=== PATIENT | female | born 1940 | race Caucasian/White ===

== ENCOUNTER → 2017-04-22 | Outpatient (CLI) | payer MEDICARE | LOC: PREOP 06:50 | PROVIDERS: ATTEND Surgery | DX: Z01.818 Encounter for other preprocedural examination (principal); R10.32 Left lower quadrant pain; R19.5 Other fecal abnormalities ==

== ENCOUNTER 2017-04-27 12:09 | Day surgery (SDC) | payer MEDICARE ==
[~2017-04-27] VITALS: Ht 170.2 cm; Wt 81.6 kg
[2017-04-27] MEDS ORDERED: NS IV 1000 ML 1,000 ML IV STA (12:22)
[2017-04-27] MEDS ORDERED: NS (IVPB) 50 ML ONE (12:25)
[2017-04-27] MEDS ORDERED: CLINDAMYCIN 600 MG/4ML (CLEOCIN) VIAL ONE (12:25)
[2017-04-27] MEDS ORDERED: FLUMAZENIL (ROMAZICON) 0.1 MG/ML 5 ML VIAL INJ PRN (12:30)
[2017-04-27] MEDS ORDERED: NALOXONE 0.4 MG/ML 1 ML (NARCAN) VIAL IVP PRN (12:30)
[2017-04-27] MEDS ORDERED: HURRICAINE EXT TUBE (BENZOCAINE) XX PRN (12:30)
[2017-04-27 12:56] VITALS: BP 119/87
[2017-04-27] MEDS ORDERED: CLINDAMYCIN 600 MG/NS 50 ML IVPB IV ONE ×2 (13:00)
[2017-04-27] MEDS ORDERED: METO1TAB38 PO (13:09)
[2017-04-27] MEDS ORDERED: ASPI-999 PO (13:09)
[2017-04-27] MEDS ORDERED: MIDAZOLAM 2 MG/2 ML (VERSED) VIAL ONE (14:35)
[2017-04-27] MEDS ORDERED: proPOfol 200 MG/20 ML (DIPRIVAN) VIAL IV ONE (14:35)
--- NOTE | 2017-04-27 14:49 | Progress Note-Pre Operative ---
Pre-Operative Progress Note H&P Reviewed The H&P was reviewed, patient examined and no changes noted. Date Seen by Provider: Apr 27, 2017 Time Seen by Provider: 14:48 Date H&P Reviewed: Apr 27, 2017 Time H&P Reviewed: 14:48 Pre-Operative Diagnosis: right lower quadrant abdominal pain, dark stools ALEXANDR ERAZO DO Apr 27, 2017 2:49 pm
[2017-04-27] MEDS ORDERED: ESMOLOL 100 MG/10 ML (BREVIBLOC) VIAL ONE (15:09)
[2017-04-27] MEDS ORDERED: NF-ESOM40C PO (15:23)
--- NOTE | 2017-04-27 15:26 | Progress Note-Post Operative ---
Post-Operative Progess Note Surgeon (s)/Nursing Home Physician (s) Surgeon ALEXANDR ERAZO DO Nursing Home Physician: na Pre-Operative Diagnosis right lower quadrant abdominal pain, dark stools Post-Operative Diagnosis pyloric channel/ antrum healing erosion, small hiatal hernia, normal colon Procedure & Operative Findings Date of Procedure 04/27/17 Procedure Performed/Findings egd c biopsies, colonoscopy Anesthesia Type per traffic control signaler Estimated Blood Loss Estimated blood loss (mL): none Specimens/Packing Specimens Removed antrum, ge junction ALEXANDR ERAZO DO Apr 27, 2017 3:26 pm
--- NOTE | 2017-04-27 15:27 | Discharge Inst-Simple/Standard ---
Discharge Inst-Standard Discharge Medications New, Converted or Re-Newed RX: RX on Chart Patient Instructions/Follow Up Plan of Care/Instructions/FU: Follow up with Dr. Pacheco before may 16 Continue to take Nexium 40 mg once a day. Repeat colonoscopy in 10 years or sooner if family hx of colon cancer or changes in current conditions. Activity as Tolerated: Yes Discharge Diet: No Restrictions NO CEJA APRN Apr 27, 2017 15:27
[2017-04-27 15:35] VITALS: BP 117/70
[2017-04-27 15:55] VITALS: BP 109/94
[2017-04-27 16:38] VITALS: BP 109/94
--- NOTE | 2017-04-28 01:47 | OPERATIVE REPORT ---
DATE OF SERVICE: 04/27/2017 PREOPERATIVE DIAGNOSIS: Right lower quadrant abdominal pain, dark stools. POSTOPERATIVE DIAGNOSES: Pyloric channel antrum healing erosion, small hiatal hernia, normal colon. PROCEDURE: EGD with biopsies and colonoscopy. SURGEON: Alexandr Pacheco DO. ANESTHESIA: Per NOZZLE AND SLEEVE WORKER. ESTIMATED BLOOD LOSS: None. COMPLICATIONS: None. INDICATIONS: The patient is a 76-year-old female who presented with right lower quadrant abdominal pain as having dark stools. She was placed on Nexium and started having improvement. She was recommended to have EGD and colonoscopy. She understands the risks and benefits and wished to proceed with procedure. Consent was signed and on the chart. DESCRIPTION OF PROCEDURE: The patient was taken to the endoscopy suite, placed in left lateral recumbent position. Timeout was performed. Scope was inserted into the mouth, down the esophagus, stomach and into the duodenum without difficulty. There are no polyps, masses or ulcerations within the duodenum. The scope was slowly retracted back into the stomach where in the pylorus and into the antrum there were some erythematous changes in appearance of healing erosion. Biopsy of the antrum at this area was obtained. The scope was then slowly retracted back and retroflexed noting a small hiatal hernia. There is a small polyp present. Scope was returned to its normal position, slowly withdrawn back into the distal esophagus, there were some slight erythematous changes at the GE junction. Biopsy was obtained. Scope was slowly retracted back noting no other pathology. Digital rectal exam was performed and there were no palpable polyps, masses or ulcerations. Scope was inserted in the rectum and advanced all the way to the cecum with minimal difficulty. Prep was adequate. Scope was then slowly retracted back. There were no polyps, masses or ulcerations within the cecum, ascending, transverse, descending and sigmoid colon. Once in the rectum, scope was also retroflexed noting no other pathology. Scope was returned to its normal position, slowly withdrawn until completely removed. The patient tolerated procedure well without any complications. She was taken to recovery room in stable condition. RECOMMENDATIONS: The patient will continue on Nexium 40 mg daily. She will follow up in the office to discuss pathology results. The patient would recommend repeat colonoscopy if she has any problems at that time; otherwise in 5 years if no family history of colon cancer. We would recommend a repeat EGD in 1 to 3 years depending upon biopsy results. Job ID: [id number] DocumentID: [id number] Dictated Date: 04/27/2017 15:30:19 Antenna Rigger Date: 04/28/2017 01:47:01 Dictated By: ALEXANDR PACHECO DO
--- OUTSIDE RECORDS SUMMARY | 2017-04-29 16:19 | XMS REPORT | Continuity of Care Document ---
Author Author [facility] Organization [facility] Address Unknown Phone Unavailable Allergies Active Description Code Type Severity Reaction Onset Reported/Identified Relationship to Patient Clinical Status Yes Cephalosporins [id number] Drug Allergy Unknown N/A 04/27/2017 Medications Problems Procedures Results Encounters ACCT No. Visit Date/Time Discharge Status Pt. Type Provider Facility Loc./Unit Complaint [id number] 04/27/2017 12:09:00 2016 16:30:00 DIS Outpatient ALEXANDR ERAZO DO [facility] ENDO D[facility] [place] [id number] 08/18/2013 07:22:00 2012 23:59:59 CLS Outpatient [id number] 04/22/2017 06:50:00 ACT Outpatient ALEXANDR ERAZO DO [facility] PREOP [place] [place]
== END 2017-04-27 16:30 | disposition home or self-care (01) ==
LOC: ENDO 12:09
PROVIDERS: ATTEND Surgery
DX: R19.5 Other fecal abnormalities (principal); K25.9 Gastric ulcer, unspecified as acute or chronic, without hemorrhage or perforation; K44.9 Diaphragmatic hernia without obstruction or gangrene; K31.7 Polyp of stomach and duodenum; I10 Essential (primary) hypertension; E78.5 Hyperlipidemia, unspecified; I27.2 Other secondary pulmonary hypertension

== ENCOUNTER 2017-10-09 13:25 | Emergency (ER) | payer MEDICARE ==
[~2017-10-09] VITALS: Ht 162.6 cm; Wt 72.6 kg
[~2017-10-09 13:25] MED LIST: ASPI-999 PO; METO1TAB38 PO; NF-ESOM40C PO
--- OUTSIDE RECORDS SUMMARY | 2017-10-09 13:29 | XMS REPORT | Continuity of Care Document ---
Author Author [facility] Organization [facility] Address Unknown Phone Unavailable Allergies Active Description Code Type Severity Reaction Onset Reported/Identified Relationship to Patient Clinical Status Yes Cephalosporins [id number] Drug Allergy Unknown N/A 04/27/2017 Medications Problems Date Dx Coded Attending Type Code Diagnosis Diagnosed By 04/27/2017 ALEXANDR ERAZO DO Ot E78.5 HYPERLIPIDEMIA, UNSPECIFIED 04/27/2017 ALEXANDR ERAZO DO Ot I10 ESSENTIAL (PRIMARY) HYPERTENSION 04/27/2017 ALEXANDR ERAZO DO Ot I27.2 OTHER SECONDARY PULMONARY HYPERTENSION 04/27/2017 ALEXANDR ERAZO DO Ot K25.9 GASTRIC ULCER, UNSP ACUTE OR CHRONIC, 04/27/2017 ALEXANDR ERAZO DO Ot K31.7 POLYP OF STOMACH AND DUODENUM 04/27/2017 ALEXANDR ERAZO DO Ot K44.9 DIAPHRAGMATIC HERNIA WITHOUT OBSTRUCTION 04/27/2017 ALEXANDR ERAZO DO Ot R19.5 OTHER FECAL ABNORMALITIES Procedures Results Encounters ACCT No. Visit Date/Time Discharge Status Pt. Type Provider Facility Loc./Unit Complaint [id number] 04/27/2017 12:09:00 2016 16:30:00 DIS Outpatient ALEXANDR ERAZO DO [facility] ENDO [place] [id number] 04/22/2017 06:50:00 2016 23:59:59 CLS Outpatient ALEXANDR ERAZO DO [facility] PREOP [place] [id number] 08/18/2013 07:22:00 2012 23:59:59 CLS Outpatient
[2017-10-09 13:30] VITALS: BP 157/80
[2017-10-09 13:44] LABS: BASOPHILS % (AUTO) 0 % (0-10); EOSINOPHILS # (AUTO) 0.1 10^3/uL (0.0-0.3); EOSINOPHILS % (AUTO) 1 % (0-10); LYMPHOCYTES % (AUTO) 27 % (12-44); MEAN CORPUSCULAR HEMOGLOBIN 29 PG (25-34); MEAN CORPUSCULAR HGB CONC 34 G/DL (32-36); MEAN CORPUSCULAR VOLUME 86 FL (80-99); MEAN PLATELET VOLUME 10.6 FL (7.4-10.4); MONOCYTES # (AUTO) 0.7 X 10^3 (0.0-1.0); MONOCYTES % (AUTO) 10 % (0-12); NEUTROPHILS # (AUTO) 4.7 X 10^3 (1.8-7.8); NEUTROPHILS % (AUTO) 63 % (42-75); PLATELET COUNT 246 10^3/uL (130-400); RED BLOOD COUNT 5.03 10^6/uL (4.35-5.85); WHITE BLOOD COUNT 7.5 10^3/uL (4.3-11.0)
--- NOTE | 2017-10-09 13:46 | Diagnostic Imaging Report ---
Portable erect AP chest at 1:35 p.m. INDICATION: Chest pain. FINDINGS: The heart is enlarged and the heart does seem more prominent than noted on the prior exam of 03/10/2007. The lungs are clear, however, there is no sign of failure, pneumonia or pleural effusion. Mediastinum is not widened. The osseous structures are intact. In the interval since the prior study, soft tissue calcifications have developed along the inferior aspect of the right glenohumeral joint. 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 If further imaging is desired, then CT would be recommended. IMPRESSION: 1. There is cardiomegaly but there is no evidence for acute cardiopulmonary abnormality. 2. 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 Recommendations as above. Dictated by: Dictated on workstation # [id number]
--- NOTE | 2017-10-09 13:49 | Diagnostic Imaging Report ---
INDICATION: CVA. FINDINGS: There is no mass, shift of midline or hemorrhage to suggest an acute intracranial abnormality. The left middle cerebral artery, however, does seem hyperdense compared to the right. This finding is somewhat similar to the previous CT head exam of 10/14/2012. Even so, the possibility that there is an acute infarct in the distribution of the left middle cerebral artery should be the primary concern. The ventricles are not abnormally dilated and stable in size when compared to the prior exam of 10/14/2012. The cortical atrophy seen previously is again evident and no different. The bone windows show no sign of a fracture or destructive lesion. The orbits are similar in appearance to the prior exam. There is a small radiopaque density along the inferior margin of the left globe. The sinuses are generally clear where visualized. IMPRESSION: 1. There is no mass or hemorrhage identified. However, the hyperdense appearance of left middle cerebral artery does suggest an acute infarct in the distribution of the left middle cerebral artery. If further imaging is desired, then MRI would be recommended. 2. These results were discussed with Dr. Cary at the time of this dictation. CRITICAL FINDING Dictated by: Dictated on workstation # [id number]
[2017-10-09 13:57] LABS: PROTHROMBIN TIME PATIENT 13.5 SEC (12.2-14.7)
[2017-10-09] MEDS ORDERED: ALTEPLASE 100 MG/VIAL (ACTIVASE) IV ONE (13:57)
[2017-10-09 14:03] LABS: ALANINE AMINOTRANSFERASE 29 U/L (0-55); ANION GAP 12 MMOL/L (5-14); ASPARTATE AMINO TRANSFERASE 28 U/L (5-34); BLOOD UREA NITROGEN 20 MG/DL (7-18); BUN/CREATININE RATIO 24; CALCIUM 9.1 MG/DL (8.5-10.1); CARBON DIOXIDE 21 MMOL/L (21-32); CHLORIDE 107 MMOL/L (98-107); CREATININE SERUM 0.85 MG/DL (0.60-1.30); GFR ESTIMATED > 60; GLUCOSE 96 MG/DL (70-105); SODIUM 140 MMOL/L (135-145); TOTAL PROTEIN 7.2 GM/DL (6.4-8.2)
[2017-10-09 14:09] LABS: TROPONIN I < 0.30 NG/ML (<0.30)
[2017-10-09 14:15] LABS: BILIRUBIN,URINE NEGATIVE (NEGATIVE); KETONES,URINE 1+ (NEGATIVE); LEUKOCYTE ESTERASE ,URINE 1+ (NEGATIVE); NITRITE,URINE NEGATIVE (NEGATIVE); PH,URINE 6 (5-9); PROTEIN,URINE 1+ (NEGATIVE); UROBILINOGEN,URINE NORMAL (NORMAL)
--- NOTE | 2017-10-09 14:15 | ED Neurological Problem ---
General Chief Complaint: Neuro-Stroke Like Symptoms Stated Complaint: STROKE Source: EMS Exam Limitations: clinical condition History of Present Illness Time seen by provider: 13:24 Initial Comments Here emergently by EMS with report of acute right sided flaccidity and left- sided gaze onset at about 1 p.m. today. Patient maintaining her own airway. 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 Has history of atrial fibrillation that is apparently paroxysmal. Unsure of anticoagulant use. Otherwise unable to obtain history due to clinical condition. Timing/Duration: 1/2 hour Severity: severe Associated Symptoms: other (unable to determine due to clinical condition) Allergies and Home Medications Allergies Coded Allergies: Cephalosporins (Unverified Allergy, Unknown, 04/27/17) Home Medications Esomeprazole Magnesium 40 Mg Cap, 40 MG PO DAILY, #30 Ref 6 Prescribed by: NO FARR on 04/27/17 1523 Metoprolol Succinate/Hctz 1 Each Tab.er.24h, EACH PO, (Reported) Constitutional: see HPI Other Unable to complete due to clinical condition Past Gaqpdvt-Rnsurc-Liwdtt Hx Patient Social History Alcohol Use: Occasionally Uses Alcohol Beverage of Choice: Wine Smoking Status: Former Smoker Type Used: Cigarettes Former Smoker, Quit: Apr 08, 1963 Recent Hopitalizations: No Immunizations Up To Date Tetanus Booster (TDap): Unknown Seasonal Allergies Seasonal Allergies: No Surgeries History of Surgeries: Yes Surgeries: Orthopedic, Tonsillectomy Respiratory Currently Using CPAP: No Cardiovascular History of Cardiac Disorders: Yes Cardiac Disorders: Atrial Fibrillation, Hypertension, Irregular Heartbeat Neurological History of Neurological Disord: No Reproductive System Hx Reproductive Disorders: No Sexually Transmitted Disease: No HIV/AIDS: No Female Reproductive Disorders: Denies Genitourinary History of Genitourinary Disor: No Gastrointestinal History of Gastrointestinal Di: Yes Gastrointestinal Disorders: Gastroesophageal Reflux HEENT Loss of Vision: Denies Hearing Impairment: Denies Reviewed Nursing Assessment Reviewed/Agree w Nursing PMH: Yes Family Medical History Significant Family History: Stroke Physical Exam Vital Signs Vital Sign - Last 12Hours 10/09/17 13:25 Temp 97.5 Pulse 64 Resp 16 B/P (MAP) 157/80 (105) O2 Delivery Room Air Capillary Refill : General Appearance: WD/WN, moderate distress HEENT: pharynx normal, other (pupils are equal bilateral with left sided gaze and does not go right to pass midline.) Neck: supple, No lymphadenopathy (R), No lymphadenopathy (L) Respiratory: lungs clear, normal breath sounds Cardiovascular: regular rate, rhythm, no murmur Peripheral Pulses: 2+ Dorsalis Pedis (R), 2+ Left Dors-Pedis (L), 2+ Radial Pulses (R), 2+ Radial Pulses (L) Gastrointestinal: non tender, soft Back: no CVA tenderness, no vertebral tenderness Extremities: pedal edema (1-2+ bilateral lower extremities), other (able to move left arm and left leg and has minimal proximal movement of the right arm and right leg although is unable to left.) Neurologic/Psychiatric: facial droop (right), motor weakness (right-sided), disoriented x 3, other (eyes open and does not talk. Does lift arm on command and put it down on command but otherwise follows no commands.) Crainal Nerves: abnormal eye position, abnormal speech, facial droop Coordination/Gait: other (unable to perform due to clinical condition) Motor/Sensory: weak motor strength RUE, weak motor strength RLE, weak motor strength LLE Skin: normal color, warm/dry Progress/Results/Core Measures Results/Orders Lab Results Laboratory Tests Test 10/09/17 13:36 10/09/17 13:46 10/09/17 14:09 Range/Units White Blood Count 7.5 4.3-11.0 10^3/uL Red Blood Count 5.03 4.35-5.85 10^6/uL Hemoglobin 14.5 11.5-16.0 G/DL Hematocrit 43 35-52 % Mean Corpuscular Volume 86 80-99 FL Mean Corpuscular Hemoglobin 29 25-34 PG Mean Corpuscular Hemoglobin Concent 34 32-36 G/DL Red Cell Distribution Width 14.0 10.0-14.5 % Platelet Count 246 130-400 10^3/uL Mean Platelet Volume 10.6 H 7.4-10.4 FL Neutrophils (%) (Auto) 63 42-75 % Lymphocytes (%) (Auto) 27 12-44 % Monocytes (%) (Auto) 10 0-12 % Eosinophils (%) (Auto) 1 0-10 % Basophils (%) (Auto) 0 0-10 % Neutrophils # (Auto) 4.7 1.8-7.8 X 10^3 Lymphocytes # (Auto) 2.0 1.0-4.0 X 10^3 Monocytes # (Auto) 0.7 0.0-1.0 X 10^3 Eosinophils # (Auto) 0.1 0.0-0.3 10^3/uL Basophils # (Auto) 0.0 0.0-0.1 10^3/uL Prothrombin Time 13.5 12.2-14.7 SEC INR Comment 1.0 0.8-1.4 Activated Partial Thromboplast Time 29 24-35 SEC D-Dimer 0.87 H 0.00-0.49 UG/ML Sodium Level 140 135-145 MMOL/L Potassium Level 4.0 3.6-5.0 MMOL/L Chloride Level 107 98-107 MMOL/L Carbon Dioxide Level 21 21-32 MMOL/L Anion Gap 12 5-14 MMOL/L Blood Urea Nitrogen 20 H 7-18 MG/DL Creatinine 0.85 0.60-1.30 MG/DL Estimat Glomerular Filtration Rate > 60 BUN/Creatinine Ratio 24 Glucose Level 96 70-105 MG/DL Calcium Level 9.1 8.5-10.1 MG/DL Total Bilirubin 1.0 0.1-1.0 MG/DL Aspartate Amino Transf (AST/SGOT) 28 5-34 U/L Alanine Aminotransferase (ALT/SGPT) 29 0-55 U/L Alkaline Phosphatase 92 40-136 U/L Troponin I < 0.30 <0.30 NG/ML Total Protein 7.2 6.4-8.2 GM/DL Albumin 4.0 3.2-4.5 GM/DL Glucometer 89 70-110 MG/DL Urine Color YELLOW Urine Clarity VERY CLOUDY H Urine pH 6 5-9 Urine Specific [place] 1.020 1.016-1.022 Urine Protein 1+ H NEGATIVE Urine Glucose (UA) NEGATIVE NEGATIVE Urine Ketones 1+ H NEGATIVE Urine Nitrite NEGATIVE NEGATIVE Urine Bilirubin NEGATIVE NEGATIVE Urine Urobilinogen NORMAL NORMAL MG/DL Urine Leukocyte Esterase 1+ H NEGATIVE Urine RBC (Auto) NEGATIVE NEGATIVE Urine RBC NONE /HPF Urine WBC 2-5 /HPF Urine Squamous Epithelial Cells 0-2 /HPF Urine Crystals NONE /LPF Urine Bacteria NEGATIVE /HPF Urine Casts NONE /LPF Urine Mucus LARGE H /LPF Urine Culture Indicated NO My Orders Orders - SUSANA SULLIVAN MD Cbc With Automated Diff (10/09/17 13:27) Protime With Inr (10/09/17 13:27) Partial Thromboplastin Time (10/09/17 13:27) Comprehensive Metabolic Panel (10/09/17 13:) Fibrin Degradation Products (10/09/17 13:27) Troponin I (10/09/17 13:27) Ua Culture If Indicated (10/09/17 13:27) Chest 1 View, Ap/Pa Only (10/09/17 13:27) Catheter(Urinary) Insert & Ass 03,15 (10/09/17 13:27) Ekg Tracing (10/09/17 13:27) Nothing By Mouth (10/09/17 Dinner) Accucheck Stat ONCE (10/09/17:) Saline Lock/Iv-Start (10/09/17:27) Saline Lock/Iv-Start (10/09/17 13:27) Vital Signs - Stroke Q15M (10/09/17 13:27) Ct Head Wo-R/O Stroke (10/09/17 13:27) O2 (10/09/17 13:27) Intake & Output 06,14,22 (10/09/17 13:27) Monitor-Rhythm Ecg Trace Only (10/09/17 13:27) Dysphagia Screening Tool (10/09/17 13:27) Post Thrombolytic Adminstratio (10/09/17 13:27) Alteplase (Activase) (Activase Injection (10/09/17 13:57) Vital Signs/I&O Vital Sign - Last 12Hours 10/09/17 13:25 Temp 97.5 Pulse 64 Resp 16 B/P (MAP) 157/80 (105) O2 Delivery Room Air Point of Care Testing Finger Stick Blood Glucose: 89 Progress Note : Progress Note Seen and evaluated on arrival by EMS and then directly to CT scanner. Stroke team initiated prior to patient arrival. Concerns for significant stroke. IV, labs, EKG, chest x-ray, Leo catheter and second IV ordered in anticipation of TPA. I did make contact with the stroke neurologist at [facility] at 1346. She agrees with TPA if possible. I have talked with the radiologist and he believes that there is density within the left MCA concerning for left MCA stroke. This makes sense given her current medical presentation. Dr. Hidalgo does recommend TPA in the setting. We're currently trying to determine if the patient is on blood thinners. We are initiating calls to local pharmacies as well as to the . 1400: states that she is not on blood thinners. Coags are negative. Patient has no other contraindication to TPA and has been gives verbal permission on the phone to Gregg Ocampo APRN after discussion of risk and benefits. 1405: TPA bolus initiated after all lines have been placed. Blood pressure 150s to 160s over 70s. Patient was noted to have slight proximal movement to the upper arm and upper leg. Due to the large vessel occlusion, patient will need to go to Center capable of clot retrieval if this is an indicated procedure. Dr. Hidalgo has accepted the patient in transfer to and transfer team has called back and given bed. We have initiated helicopter transport and it is in route for transport to . This is the closest Center capable of managing this type of procedure. was informed and is aware and agrees. 1420: Blood pressure 144/67 with heart rate of 59 and O2 sat 97 percent on room air. ECG Initial ECG Impression Date: Oct 09, 2017 Initial ECG Impression Time: 13:39 Initial ECG Rate: 64 Initial ECG Rhythm: Normal Sinus Comment Sinus rhythm with left bundle branch block. Left axis deviation. No previous available for comparison. Interpreted by me. Diagnostic Imaging Diagonstic Imaging: CT Plain Films/CT/US/NM/MRI: head Comments [facility] [place] [place] NAME: JEREMIAH OLIVER [facility] REC#: [id number] PT STATUS: REG ER : 1940 PHYSICIAN: SUSANA SULLIVAN MD ADMIT DATE: 10/09/17/ER Draft Date of Exam:10/09/17 CT HEAD WO-R/O STROKE INDICATION: CVA. FINDINGS: There is no mass, shift of midline or hemorrhage to suggest an acute intracranial abnormality. The left middle cerebral artery, however, does seem hyperdense compared to the right. This finding is similar to the previous CT head exam of 10/14/2012. The ventricles are not abnormally dilated and stable in size when compared to the prior exam of 10/14/2012. The cortical atrophy seen previously is again evident and no different. The bone windows show no sign of a fracture or destructive lesion. The orbits are similar in appearance to the prior exam. There is a small radiopaque density along the inferior margin of the left globe. The sinuses are generally clear where visualized. IMPRESSION: 1. There is no mass or hemorrhage identified. However, the hyperdense appearance of left middle cerebral artery does suggest an infarct in the distribution of the left middle cerebral artery. If further imaging is desired, MRI would be recommended. 2. These results were discussed with Dr. Sullivan. CRITICAL FINDING Dictated on workstation # [id number] Dict: 10/09/17 1336 Trans: 10/09/17 1349 KB [id number] Interpreted by: MAN JOSEPH MD Electronically signed by: Delisagonslauren Imaging: Xray Plain Films/CT/US/NM/MRI: chest Comments [facility] [place] [place] NAME: JEREMIAH OLIVER [facility] REC#: [id number] PT STATUS: REG ER : 1940 PHYSICIAN: SUSANA SULLIVAN MD ADMIT DATE: 10/09/17/ER Draft Date of Exam:10/09/17 CHEST 1 VIEW, AP/PA ONLY Portable erect AP chest at 1:35 p.m. INDICATION: Chest pain. FINDINGS: The heart is enlarged and the heart does seem more prominent than noted on the prior exam of 03/10/2007. The lungs are clear, however, there is no sign of failure, pneumonia or pleural effusion. Mediastinum is not widened. The osseous structures are intact. In the interval since the prior study, soft tissue calcifications have developed along the inferior aspect of the right glenohumeral joint. 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 If further imaging is desired, then CT would be recommended. IMPRESSION: 1. There is cardiomegaly but there is no evidence for acute cardiopulmonary abnormality. 2. 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 Recommendations as above. Dictated on workstation # [id number] Dict: 10/09/17 1340 Trans: 10/09/17 1346 KB [id number] Interpreted by: MAN JOSEPH MD Electronically signed by: Departure Impression Impression: Primary Impression: Cerebrovascular accident due to cerebral artery occlusion Disposition: 02 XFER SHT-TRM HOSP Condition: Critical Transfer Time Spoke to Accepting Phy: 13:46 Transfer Time: 14:25 Transfer Facility: [facility], Dr. Hidalgo accepting Method of Transfer: Air Departure-Patient Inst. Referrals: BLU HAYDEN MD (PCP) Primary Care Physician Copy Copies To 1: BLU HAYDEN MD, TIMOTHY D MD Oct 09, 2017 14:15
[2017-10-09 14:38] LABS: SQUAMOUS EPITHELIAL CELL,UR 0-2 /HPF
[2017-10-09 14:45] VITALS: BP 142/78
== END 2017-10-09 14:45 | disposition short-term general hospital (02) ==
LOC: EDUNIT# 13:25 → ER 13:26
DX: I63.50 Cerebral infarction due to unspecified occlusion or stenosis of unspecified cerebral artery (principal); K21.9 Gastro-esophageal reflux disease without esophagitis; I48.91 Unspecified atrial fibrillation; Z90.89 Acquired absence of other organs
CPT/HCPCS: 36415; 70450; 71010; 80053; 81000; 82962; 84484; 85025; 85379; 85610; 85730; 92977; 93005; 93041